=== PATIENT | male | born 2000 ===

== ENCOUNTER 2018-11-07 12:40 | Outpatient (REF) | payer BC, SELFPAY ==
[2018-11-07 21:10] LABS: Calculated LDL 145 mg/dL; Cholesterol 215 mg/dL (50-200); HDL Cholesterol 36 mg/dL (40-60); TSH 1.67 uIU/mL (0.36-3.74); Triglyceride 171 mg/dL (30-150)
== END 2018-11-07 13:00 ==
LOC: NCHCO 12:40
PROVIDERS: PCP Internal Medicine; Visit Provider Internal Medicine
DX: Z00.00 Encounter for general adult medical examination without abnormal findings (principal); Z13.29 Encounter for screening for other suspected endocrine disorder; Z13.220 Encounter for screening for lipoid disorders; E66.9 Obesity, unspecified
CPT/HCPCS: 80061; 84443